=== PATIENT | male | born 1985 | race Caucasian/White ===

== ENCOUNTER 2022-01-10 19:39 | Emergency (ER) | payer OTHER ==
[~2022-01-10] VITALS: Ht 177.8 cm; Wt 94.3 kg
[2022-01-10 19:39] VITALS: BP 136/82
--- NOTE | 2022-01-10 19:46 | NUR ---
PT PABLO ALS BY ROSINA ALMENDAREZ [address], TAKEN TO CHAIR
--- NOTE | 2022-01-10 19:50 | NUR ---
SEEN AND EXAMINED BY [place] WITH ORDERS AND CARRIED OUT.
[2022-01-10] MEDS ORDERED: ONDANSETRON 4 MG ODT PO ONE (19:55)
[2022-01-10] MEDS ORDERED: DICYCLOMINE HCL LIQUID 20 MG, ALUMINUM HYD/MAG/SIMETHICONE 30 ML, LIDOCAINE VISCOUS 2% ... PO ONE ×3 (20:30)
[2022-01-10] MEDS ORDERED: ALUMINUM HYD/MAG/SIMETHICONE 30 ML UDC ONE (20:58)
[2022-01-10] MEDS ORDERED: DICYCLOMINE HCL LIQUID 10 MG/5 ML UDC ONE (20:58)
[2022-01-10] MEDS ORDERED: ONDANSETRON 4 MG ODT ONE (20:59)
--- NOTE | 2022-01-10 21:00 | NUR ---
MEDICATED PER [facility] ORDER, TOLERATED WELL.
[2022-01-10] MEDS ORDERED: KETOROLAC 15 MG/ML VIAL IVP ONE (21:15)
[2022-01-10] MEDS ORDERED: PANTOPRAZOLE 40 MG INJ VIAL IVP ONE (21:15)
[2022-01-10] MEDS ORDERED: NAPR-54 PO (21:45)
[2022-01-10] MEDS ORDERED: PANT40EC PO (21:45)
[2022-01-10 21:50] VITALS: BP 121/79
--- NOTE | 2022-01-10 21:50 | NUR ---
Patient discharged with v/s stable BY DR. BOSS. Written and verbal after care instructions given and explained. Patient alert, oriented and verbalized understanding of instructions. Ambulatory with steady gait. All questions addressed prior to discharge. ID band removed. Patient advised to follow up with PMD. Rx of NAPROSYN, PROTONIX given. Patient educated on indication of medication including possible reaction and side effects. Opportunity to ask questions provided and answered.
== END 2022-01-10 21:50 | disposition home or self-care (01) ==
LOC: MED 19:39
DX: S27.818A Other injury of esophagus (thoracic part), initial encounter (principal); T17.928A Food in respiratory tract, part unspecified causing other injury, initial encounter; K21.9 Gastro-esophageal reflux disease without esophagitis; Z79.899 Other long term (current) drug therapy; X58.XXXA Exposure to other specified factors, initial encounter; Y93.89 Activity, other specified; Y92.89 Other specified places as the place of occurrence of the external cause; Y99.8 Other external cause status
CPT/HCPCS: 70360; 96374; 96375; 99284; C9113; J1885; Q0162

== ENCOUNTER 2022-04-30 19:56 | Emergency (ER) | payer BC, OTHER ==
[~2022-04-30] VITALS: Ht 177.8 cm; Wt 97.1 kg
[~2022-04-30 19:56] MED LIST: NAPR-54 PO; PANT40EC PO
[2022-04-30 20:52] VITALS: BP 150/102
--- NOTE | 2022-04-30 20:59 | NUR ---
Patient to bed 7, on monitor.
[2022-04-30] MEDS ORDERED: KETOROLAC 60 MG/2 ML VIAL IM ONE (21:10)
[2022-04-30] MEDS ORDERED: diazePAM 5 MG TAB PO ONE (22:35)
[2022-04-30 22:56] LABS: BASOPHILS # (AUTO) 0.1 K/uL (0.00-0.22); BASOPHILS % (AUTO) 0.6 % (0.0-2.0); EOSINOPHILS # (AUTO) 0.3 K/uL (0-0.4); EOSINOPHILS % (AUTO) 2.3 % (0.0-4.0); HEMATOCRIT 44.2 % (36-52); HEMOGLOBIN 14.9 g/dL (12.0-18.0); LYMPHOCYTES # (AUTO) 3.6 K/uL (2.0-11.5); LYMPHOCYTES % (AUTO) 28.6 % (20.5-51.1); MEAN CORPUSCULAR HEMOGLOBIN 29 pg (27-31); MEAN CORPUSCULAR HGB CONC 34 g/dL (33-37); MEAN CORPUSCULAR VOLUME 84.7 fL (80-94); MONOCYTES # (AUTO) 0.7 K/uL (0.8-1.0); MONOCYTES % (AUTO) 5.4 % (1.7-9.3); NEUTROPHILS % (AUTO) 63.1 % (42.2-75.2); PLATELET COUNT (AUTO) 211 K/uL (140-450); RED BLOOD CELL COUNT(AUTO) 5.22 MIL/uL (4.20-6.10); RED CELL DISTRIBUTION WIDTH 12.6 % (11.6-13.7); WHITE BLOOD COUNT (AUTO) 12.7 K/uL (4.8-10.8)
[2022-04-30 23:09] LABS: CHLORIDE 100 mmol/L (98-107); POTASSIUM 3.7 mmol/L (3.5-5.1); SODIUM SERUM 139 mmol/L (136-145)
[2022-04-30 23:22] LABS: ALBUMIN 4.3 g/dL (3.4-5.0); ANION GAP 13.3 (8-16); ASPARTATE AMINOTRANSFERASE 25 U/L (15-37); CARBON DIOXIDE 28.4 mmol/L (21-32); CREATININE 0.9 mg/dL (0.6-1.3); GFR ARICAN-AMERICAN 121 mL/min (>90); GLUCOSE 100 mg/dL (74-106); TOTAL BILIRUBIN 0.4 mg/dL (0.0-1.0); UREA NITROGEN, BLOOD 18 mg/dL (7-18)
[2022-04-30] MEDS ORDERED: NAPR-54 PO (23:44)
[2022-04-30] MEDS ORDERED: CYCL-711 PO (23:44)
[2022-05-01 00:40] VITALS: BP 150/102
--- NOTE | 2022-05-01 00:41 | NUR ---
Patient discharged with v/s stable. Written and verbal after care instructions given and explained. Patient verbalized understanding. Ambulatory with steady gait. All questions addressed prior to discharge. Advised to follow up with PMD.
== END 2022-05-01 00:41 | disposition home or self-care (01) ==
LOC: MED 19:56
DX: M79.622 Pain in left upper arm (principal); R20.2 Paresthesia of skin; K21.9 Gastro-esophageal reflux disease without esophagitis; Z98.890 Other specified postprocedural states
CPT/HCPCS: 36415; 71045; 80053; 84484; 85025; 93005; 96372; 99284; J1885; Q0092

== ENCOUNTER 2023-01-09 02:00 | Emergency (ER) | payer BC ==
[~2023-01-09] VITALS: Ht 180.3 cm; Wt 96.2 kg
[~2023-01-09 02:00] MED LIST changes: +CYCL-711 PO
[2023-01-09 02:11] VITALS: BP 125/89; PULSE 61; RESP 16; TEMP 96.6; O2SAT 99
[2023-01-09] MEDS ORDERED: FAMOTIDINE 20 MG/2 ML VIAL IVP ONE (02:25)
[2023-01-09] MEDS ORDERED: NACL 0.9% 1,000 ML IV ONE (02:25)
[2023-01-09 03:09] LABS: BASOPHILS # (AUTO) 0.1 K/uL (0.00-0.22); BASOPHILS % (AUTO) 0.9 % (0.0-2.0); EOSINOPHILS # (AUTO) 0.3 K/uL (0-0.4); EOSINOPHILS % (AUTO) 2.6 % (0.0-4.0); HEMATOCRIT 45.2 % (36-52); HEMOGLOBIN 15.4 g/dL (12.0-18.0); LYMPHOCYTES # (AUTO) 3.7 K/uL (2.0-11.5); LYMPHOCYTES % (AUTO) 33.3 % (20.5-51.1); MEAN CORPUSCULAR HEMOGLOBIN 29 pg (27-31); MEAN CORPUSCULAR HGB CONC 34 g/dL (33-37); MEAN CORPUSCULAR VOLUME 85.2 fL (80-94); MONOCYTES # (AUTO) 0.7 K/uL (0.8-1.0); MONOCYTES % (AUTO) 6.5 % (1.7-9.3); NEUTROPHILS # (AUTO) 6.3 K/uL (1.8-7.7); NEUTROPHILS % (AUTO) 56.7 % (42.2-75.2); PLATELET COUNT (AUTO) 215 K/uL (140-450); RED BLOOD CELL COUNT(AUTO) 5.31 MIL/uL (4.20-6.10); WHITE BLOOD COUNT (AUTO) 11.1 K/uL (4.8-10.8)
[2023-01-09 03:16] LABS: APPEARANCE,URINE CLEAR (CLEAR); BILIRUBIN,URINE NEGATIVE (NEGATIVE); BLOOD, URINE NEGATIVE (NEGATIVE); COLOR,URINE YELLOW (YELLOW); LEUKOCYTE ESTERASE ,URINE NEGATIVE (NEGATIVE); NITRITE, URINE NEGATIVE (NEGATIVE); PROTEIN,URINE NEGATIVE (NEGATIVE); UGLUCOSE NEGATIVE (NEGATIVE); UROBILINOGEN,URINE 0.2 EU/dL (0.2 - 1)
[2023-01-09 03:21] LABS: ANION GAP 14.5 (8-16); CALCIUM 8.7 mg/dL (8.5-10.1); CARBON DIOXIDE 26.3 mmol/L (21-32); POTASSIUM 3.8 mmol/L (3.5-5.1); TOTAL BILIRUBIN 0.5 mg/dL (0.0-1.0); TOTAL PROTEIN, SERUM 8.7 g/dL (6.4-8.2)
[2023-01-09] MEDS ORDERED: ESOM40EC PO (05:42)
[2023-01-09 05:45] VITALS: BP 132/84; PULSE 62; RESP 16; TEMP 96.6; O2SAT 99
== END 2023-01-09 05:45 | disposition home or self-care (01) ==
LOC: MED 02:00
DX: K21.9 Gastro-esophageal reflux disease without esophagitis (principal); Z79.899 Other long term (current) drug therapy; Z79.1 Long term (current) use of non-steroidal anti-inflammatories (NSAID)
CPT/HCPCS: 36415; 76705; 80053; 81003; 82150; 83690; 85025; 96361; 96374; 99285; J3490; Q0092; J7030

== ENCOUNTER 2023-03-18 14:48 | Emergency (ER) | payer BC ==
[~2023-03-18] VITALS: Ht 175.3 cm; Wt 90.7 kg
[~2023-03-18 14:48] MED LIST changes: +ESOM40EC PO
[2023-03-18 15:11] VITALS: BP 132/76; PULSE 89; RESP 18; TEMP 97; O2SAT 98
[2023-03-18] MEDS ORDERED: AMOX500C25 PO (16:09)
[2023-03-18] MEDS ORDERED: ALUMINUM HYD/MAG/SIMETHICONE 30 ML UDC PO SCH (16:25)
[2023-03-18 16:29] LABS: FLU A ANTIGEN negative (NEGATIVE); FLU B ANTIGEN NEGATIVE (NEGATIVE)
[2023-03-18] MEDS ORDERED: ALUMINUM HYD/MAG/SIMETHICONE 30 ML UDC ONE (16:33)
[2023-03-18] MEDS ORDERED: DICYCLOMINE HCL LIQUID 10 MG/5 ML UDC ONE (16:34)
[2023-03-18] MEDS: DICYCLOMINE HCL LIQUID 10 MG/5 ML UDC PO SCH ×2 (16:37→16:38)
[2023-03-18 16:42] VITALS: BP 132/64; PULSE 89; RESP 18; TEMP 97; O2SAT 89
== END 2023-03-18 16:45 | disposition home or self-care (01) ==
LOC: MED 14:48
DX: B34.9 Viral infection, unspecified (principal); Z20.822 Contact with and (suspected) exposure to COVID-19; K21.9 Gastro-esophageal reflux disease without esophagitis; Z79.899 Other long term (current) drug therapy; Z79.2 Long term (current) use of antibiotics; Z79.1 Long term (current) use of non-steroidal anti-inflammatories (NSAID)
CPT/HCPCS: 71045; 87081; 87426; 87804; 99284; Q0092

== ENCOUNTER 2023-03-25 22:33 | Emergency (ER) | payer BC ==
[~2023-03-25] VITALS: Ht 180.3 cm; Wt 99.8 kg
[~2023-03-25 22:33] MED LIST changes: +AMOX500C25 PO
[2023-03-25 22:35] VITALS: BP 146/86; PULSE 114; RESP 18; TEMP 98.8; O2SAT 99
[2023-03-25] MEDS ORDERED: LORazepam 0.5 MG TAB PO ONE (23:15)
[2023-03-26] MEDS ORDERED: FAMOTIDINE 20 MG TAB PO ONE (00:15)
[2023-03-26] MEDS ORDERED: DEXAMETHASONE 10 MG/ML VIAL PO ONE (00:15)
[2023-03-26] MEDS ORDERED: LORazepam 1 MG TAB PO ONE (01:55)
[2023-03-26 02:15] LABS: BASOPHILS # (AUTO) 0.1 K/uL (0.00-0.22); BASOPHILS % (AUTO) 0.5 % (0.0-2.0); EOSINOPHILS % (AUTO) 0.1 % (0.0-4.0); HEMATOCRIT 42.2 % (36-52); HEMOGLOBIN 14.8 g/dL (12.0-18.0); LYMPHOCYTES # (AUTO) 1.4 K/uL (2.0-11.5); LYMPHOCYTES % (AUTO) 8.5 % (20.5-51.1); MEAN CORPUSCULAR HEMOGLOBIN 30 pg (27-31); MEAN CORPUSCULAR HGB CONC 35 g/dL (33-37); MEAN CORPUSCULAR VOLUME 85.1 fL (80-94); MONOCYTES # (AUTO) 0.3 K/uL (0.8-1.0); NEUTROPHILS # (AUTO) 14.8 K/uL (1.8-7.7); NEUTROPHILS % (AUTO) 88.9 % (42.2-75.2); PLATELET COUNT (AUTO) 243 K/uL (140-450); RED BLOOD CELL COUNT(AUTO) 4.96 MIL/uL (4.20-6.10); RED CELL DISTRIBUTION WIDTH 12.3 % (11.6-13.7); WHITE BLOOD COUNT (AUTO) 16.7 K/uL (4.8-10.8)
[2023-03-26 02:27] LABS: ANION GAP 13.3 (8-16); CALCIUM 9.2 mg/dL (8.5-10.1); CARBON DIOXIDE 27.7 mmol/L (21-32); CREATININE 1.1 mg/dL (0.6-1.3)
[2023-03-26 02:46] LABS: ALCOHOL, BLOOD < 3 mg/dL (<10)
[2023-03-26 03:10] VITALS: BP 146/86; PULSE 114; RESP 18; TEMP 98.8; O2SAT 99
== END 2023-03-26 03:10 | disposition home or self-care (01) ==
LOC: MED 22:33
DX: F41.9 Anxiety disorder, unspecified (principal); F12.90 Cannabis use, unspecified, uncomplicated; K21.9 Gastro-esophageal reflux disease without esophagitis; Z79.899 Other long term (current) drug therapy; Z79.2 Long term (current) use of antibiotics; Z79.1 Long term (current) use of non-steroidal anti-inflammatories (NSAID)
CPT/HCPCS: 36415; 71045; 80048; 84484; 85025; 93005; 99285; G0482; J1100; Q0092; Q0163

== ENCOUNTER 2023-03-28 15:25 | Emergency (ER) | payer BC ==
[~2023-03-28] VITALS: Ht 180.3 cm; Wt 99.8 kg
[2023-03-28 15:47] VITALS: BP 129/88; PULSE 84; RESP 16; TEMP 98.9; O2SAT 96
[2023-03-28 16:20] LABS: FLU A ANTIGEN negative (NEGATIVE); FLU B ANTIGEN NEGATIVE (NEGATIVE)
[2023-03-28 17:14] LABS: BASOPHILS # (AUTO) 0.1 K/uL (0.00-0.22); BASOPHILS % (AUTO) 0.6 % (0.0-2.0); EOSINOPHILS % (AUTO) 0.2 % (0.0-4.0); HEMOGLOBIN 15.4 g/dL (12.0-18.0); LYMPHOCYTES # (AUTO) 3.7 K/uL (2.0-11.5); MEAN CORPUSCULAR HEMOGLOBIN 30 pg (27-31); MEAN CORPUSCULAR HGB CONC 35 g/dL (33-37); MEAN CORPUSCULAR VOLUME 84.6 fL (80-94); MONOCYTES # (AUTO) 0.8 K/uL (0.8-1.0); MONOCYTES % (AUTO) 6.9 % (1.7-9.3); NEUTROPHILS # (AUTO) 7.6 K/uL (1.8-7.7); NEUTROPHILS % (AUTO) 62.3 % (42.2-75.2); PLATELET COUNT (AUTO) 266 K/uL (140-450); RED CELL DISTRIBUTION WIDTH 12.3 % (11.6-13.7); WHITE BLOOD COUNT (AUTO) 12.2 K/uL (4.8-10.8)
[2023-03-28 17:32] LABS: ANION GAP 13.3 (8-16); CALCIUM 9.2 mg/dL (8.5-10.1); CARBON DIOXIDE 28.9 mmol/L (21-32); CREATININE 1.1 mg/dL (0.6-1.3); POTASSIUM 4.2 mmol/L (3.5-5.1); TOTAL BILIRUBIN 0.8 mg/dL (0.0-1.0); TOTAL PROTEIN, SERUM 10.2 g/dL (6.4-8.2)
[2023-03-28] MEDS ORDERED: KETOROLAC 30 MG/ML VIAL IM ONE (17:50)
[2023-03-28] MEDS ORDERED: FAMOTIDINE 20 MG TAB PO ONE (18:45)
[2023-03-28] MEDS ORDERED: FAMO-90 PO (19:18)
[2023-03-28] MEDS ORDERED: PROM118S5 PO (19:18)
[2023-03-28] MEDS ORDERED: ONDA-188 SL (19:18)
[2023-03-28] MEDS ORDERED: HYDR25CA1 PO (19:18)
[2023-03-28 19:47] VITALS: BP 129/88; PULSE 84; RESP 16; TEMP 98.9; O2SAT 96
== END 2023-03-28 19:47 | disposition home or self-care (01) ==
LOC: MED 15:25
DX: R07.89 Other chest pain (principal); K21.9 Gastro-esophageal reflux disease without esophagitis; B34.9 Viral infection, unspecified; F41.9 Anxiety disorder, unspecified; R03.0 Elevated blood-pressure reading, without diagnosis of hypertension; Z20.822 Contact with and (suspected) exposure to COVID-19; Z79.899 Other long term (current) drug therapy; Z79.1 Long term (current) use of non-steroidal anti-inflammatories (NSAID); Z79.2 Long term (current) use of antibiotics
CPT/HCPCS: 36415; 71045; 80053; 83690; 84484; 85025; 87426; 87804; 93005; 96372; 99285; J1885; Q0092

== ENCOUNTER 2023-09-19 01:21 | Emergency (ER) | payer BC ==
[~2023-09-19] VITALS: Ht 177.8 cm; Wt 96.2 kg
[~2023-09-19 01:21] MED LIST changes: +FAMO-90 PO; +HYDR25CA1 PO; +NAPR-337 PO; -NAPR-54 PO; +ONDA-188 SL; +PROM118S5 PO
[2023-09-19 01:28] VITALS: BP 140/92; PULSE 80; RESP 14; TEMP 97.6; O2SAT 99
[2023-09-19 02:01] VITALS: O2SAT 96
[2023-09-19] MEDS ORDERED: ALUMINUM HYD/MAG/SIMETHICONE 30 ML UDC ONE (02:42)
[2023-09-19] MEDS ORDERED: DICYCLOMINE HCL LIQUID 10 MG/5 ML UDC ONE (02:42)
[2023-09-19] MEDS: DICYCLOMINE HCL LIQUID 20 MG, ALUMINUM HYD/MAG/SIMETHICONE 30 ML, LIDOCAINE VISCOUS 2% ... PO ONE (02:43)
[2023-09-19 02:59] LABS: BASOPHILS % (AUTO) 0.6 % (0.0-2.0); EOSINOPHILS # (AUTO) 0.2 K/uL (0-0.4); EOSINOPHILS % (AUTO) 2.2 % (0.0-4.0); HEMATOCRIT 40.3 % (36-52); HEMOGLOBIN 13.8 g/dL (12.0-18.0); LYMPHOCYTES # (AUTO) 3.2 K/uL (2.0-11.5); LYMPHOCYTES % (AUTO) 38.6 % (20.5-51.1); MEAN CORPUSCULAR HEMOGLOBIN 29 pg (27-31); MEAN CORPUSCULAR HGB CONC 34 g/dL (33-37); MEAN CORPUSCULAR VOLUME 85.9 fL (80-94); MONOCYTES # (AUTO) 0.7 K/uL (0.8-1.0); MONOCYTES % (AUTO) 8.5 % (1.7-9.3); NEUTROPHILS # (AUTO) 4.1 K/uL (1.8-7.7); NEUTROPHILS % (AUTO) 50.1 % (42.2-75.2); PLATELET COUNT (AUTO) 188 K/uL (140-450); RED CELL DISTRIBUTION WIDTH 12.6 % (11.6-13.7); WHITE BLOOD COUNT (AUTO) 8.3 K/uL (4.8-10.8)
[2023-09-19] MEDS ORDERED: ONDANSETRON 4 MG ODT ONE (03:03)
[2023-09-19 03:14] LABS: ALBUMIN 3.8 g/dL (3.4-5.0); ANION GAP 12.7 (8-16); CALCIUM 8.4 mg/dL (8.5-10.1); CARBON DIOXIDE 27.7 mmol/L (21-32); CREATININE 1.2 mg/dL (0.6-1.3); POTASSIUM 3.4 mmol/L (3.5-5.1); TOTAL BILIRUBIN 0.8 mg/dL (0.0-1.0); TOTAL PROTEIN, SERUM 7.9 g/dL (6.4-8.2)
[2023-09-19] MEDS: ONDANSETRON 4 MG ODT PO ONE (03:14)
[2023-09-19] MEDS ORDERED: ONDA-188 PO (04:10)
[2023-09-19] MEDS ORDERED: MAG-27 PO (04:10)
[2023-09-19 04:24] VITALS: BP 114/76; PULSE 59; RESP 19; TEMP 98.3; O2SAT 98
== END 2023-09-19 04:24 | disposition home or self-care (01) ==
LOC: MED 01:21
DX: K21.9 Gastro-esophageal reflux disease without esophagitis (principal); Z79.899 Other long term (current) drug therapy
CPT/HCPCS: 36415; 80053; 83690; 85025; 99284; Q0162